=== PATIENT | male | born 1965 | race Two or more races ===

== ENCOUNTER 2021-12-10 22:50 | Emergency (ER) | payer OTHER ==
[~2021-12-10] VITALS: Ht 175.3 cm; Wt 93.0 kg
--- NOTE | 2021-12-10 23:21 | NUR ---
BIBSELF C/O LOWER ABD PAIN RAD TO BACK FOR THE PAST 5 DAYS, +N/V. PT IS A/O X 4, RR EVEN AND UNLABORED, NO SOB NOTED. PATIENT IS AFEBRILE. TAKEN TO ER BED 10. PATIENT CONNECTED TO MONITORS.
[2021-12-10] MEDS ORDERED: IV NS 0.9% 500 ML BAG IV ONE (23:30)
[2021-12-10] MEDS ORDERED: MORPHINE SULFATE INJ 2 MG/ML DISP.SYRIN IV ONE (23:30)
[2021-12-10] MEDS ORDERED: ONDANSETRON HCL/PF 4 MG/2 ML VIAL IVP ONE (23:30)
[2021-12-10] MEDS ORDERED: MORPHINE SULFATE INJ 4 MG/ML DISP.SYRIN ONE (23:34)
[2021-12-10] MEDS ORDERED: ONDANSETRON HCL/PF 4 MG/2 ML VIAL ONE (23:34)
--- NOTE | 2021-12-10 23:40 | NUR ---
URINE COLLECTED AND SENT TO LAB
--- NOTE | 2021-12-10 23:44 | NUR ---
20G IV LINE ESTABLISHED AT [facility]. BLOOD DRAWN AND SENT TO LAB.
[2021-12-10 23:50] LABS: BASOPHILS # (AUTO) 0.1 K/uL (0.0-0.2); BASOPHILS % (AUTO) 0.9 % (0.0-2.0); EOSINOPHILS % (AUTO) 0.8 % (0.0-6.0); HEMATOCRIT 41 % (39-51); HEMOGLOBIN 13.3 g/dL (13.5-17.5); LYMPHOCYTES # (AUTO) 1.1 K/uL (0.8-4.8); LYMPHOCYTES % (AUTO) 15.8 % (20.0-44.0); MEAN CORPUSCULAR HGB CONC 33 g/dl (31.0-36.0); MEAN CORPUSCULAR VOLUME 88 fL (80-96); MONOCYTES # (AUTO) 0.5 K/uL (0.1-1.30); MONOCYTES % (AUTO) 7.2 % (2.0-12.0); NEUTROPHILS # (AUTO) 5.4 K/uL (1.8-8.9); NEUTROPHILS % (AUTO) 75.3 % (43.0-81.0); PLATELET COUNT (AUTO) 296 K/uL (150-450); RED BLOOD CELL COUNT(AUTO) 4.63 MIL/uL (4.5-6.0); WHITE BLOOD COUNT (AUTO) 7.1 K/uL (4.3-11.0)
[2021-12-10 23:59] LABS: CALCIUM, SERUM 8.8 mg/dL (8.5-10.1); CREATININE 0.8 mg/dL (0.6-1.3); POTASSIUM 4.1 mmol/L (3.5-5.1)
[2021-12-11 00:04] LABS: BILIRUBIN,URINE NEGATIVE (NEGATIVE); COLOR,URINE DARK YELLOW (YELLOW); LEUKOCYTE ESTERASE ,URINE NEGATIVE (NEGATIVE); NITRITE, URINE NEGATIVE (NEGATIVE); PROTEIN,URINE NEGATIVE (NEGATIVE); UGLUCOSE NEGATIVE (NEGATIVE); UROBILINOGEN,URINE 0.2 EU/dL (0.2)
[2021-12-11 00:05] LABS: ALBUMIN 3.4 g/dL (3.4-5.0); BILIRUBIN,DIRECT 0.1 mg/dL (0.0-0.2); BILIRUBIN,TOTAL 0.4 mg/dL (0.2-1.0)
[2021-12-11] MEDS ORDERED: KETOROLAC TROMETHAMINE INJ 30 MG/ML VIAL ONE (01:21)
[2021-12-11] MEDS ORDERED: KETOROLAC TROMETHAMINE INJ 30 MG/ML VIAL IV ONE (01:30)
[2021-12-11] MEDS ORDERED: ONDA4TAB5 PO (02:13)
--- NOTE | 2021-12-11 02:22 | NUR ---
Patient discharged to home in stable condition. Written and verbal after care instructions given. Patient verbalizes understanding of instruction.
[2021-12-11 02:40] VITALS: BP 132/83
== END 2021-12-11 02:57 | disposition home or self-care (01) ==
LOC: ER 22:52
DX: N20.0 Calculus of kidney (principal); I10 Essential (primary) hypertension; Z88.8 Allergy status to other drugs, medicaments and biological substances; Z88.6 Allergy status to analgesic agent; Z60.2 Problems related to living alone
CPT/HCPCS: 36415; 74176; 80048; 80076; 81003; 83690; 85025; 96374; 96375; 99284; J1885; J2270; J2405; J7030

== ENCOUNTER 2021-12-29 19:24 | Emergency (ER) | payer OTHER ==
[~2021-12-29 19:24] MED LIST: ONDA4TAB5 PO
== END 2021-12-29 21:43 | disposition left against medical advice (07) ==
LOC: ER 19:28
DX: M25.521 Pain in right elbow (principal); I10 Essential (primary) hypertension; Z88.8 Allergy status to other drugs, medicaments and biological substances; Z60.2 Problems related to living alone; Z79.899 Other long term (current) drug therapy

== ENCOUNTER 2022-02-03 19:42 | Emergency (ER) | payer OTHER ==
[~2022-02-03] VITALS: Ht 175.3 cm; Wt 100.2 kg
--- NOTE | 2022-02-03 20:58 | NUR ---
BIBS. BILAT TESTICLE PAIN & SWELLING X 2 DAYS. PATIENT ALERT AND ORIENTED X3. AMBULATORY WITH NON LABORED BREATHING IN BED 11 AWAITING MD TRINIDAD.
[2022-02-03] MEDS ORDERED: ONDANSETRON HCL/PF - ER 4 MG/2 ML VIAL IV ONE (21:30)
[2022-02-03] MEDS ORDERED: MORPHINE SULFATE INJ 2 MG/ML DISP.SYRIN IV ONE (21:30)
[2022-02-03] MEDS ORDERED: ONDANSETRON HCL/PF 4 MG/2 ML VIAL ONE (21:33)
[2022-02-03] MEDS ORDERED: MORPHINE SULFATE INJ 4 MG/ML DISP.SYRIN ONE (21:33)
--- NOTE | 2022-02-03 21:51 | NUR ---
US AT BEDSIDE
[2022-02-03 22:17] LABS: BASOPHILS % (AUTO) 0.3 % (0.0-2.0); EOSINOPHILS % (AUTO) 0.8 % (0.0-6.0); HEMATOCRIT 40 % (39-51); LYMPHOCYTES # (AUTO) 1.4 K/uL (0.8-4.8); LYMPHOCYTES % (AUTO) 16.8 % (20.0-44.0); MEAN CORPUSCULAR HGB CONC 33 g/dl (31.0-36.0); MEAN CORPUSCULAR VOLUME 87 fL (80-96); MONOCYTES # (AUTO) 0.5 K/uL (0.1-1.30); MONOCYTES % (AUTO) 6.5 % (2.0-12.0); NEUTROPHILS # (AUTO) 6.2 K/uL (1.8-8.9); NEUTROPHILS % (AUTO) 75.6 % (43.0-81.0); PLATELET COUNT (AUTO) 267 K/uL (150-450); RED BLOOD CELL COUNT(AUTO) 4.56 MIL/uL (4.5-6.0); WHITE BLOOD COUNT (AUTO) 8.2 K/uL (4.3-11.0)
[2022-02-03] MEDS ORDERED: PIPERACILLIN /TAZOBACTAM 3.375 G VIAL IV ONE (22:26)
[2022-02-03] MEDS ORDERED: PIPERACILLIN /TAZOBACTAM 3.375 G in IV D5W 50 ML IV ONE (22:30)
[2022-02-03 22:34] LABS: CALCIUM, SERUM 8.3 mg/dL (8.5-10.1); CREATININE 0.9 mg/dL (0.6-1.3); POTASSIUM 4.1 mmol/L (3.5-5.1)
[2022-02-03 22:41] LABS: ALBUMIN 3.5 g/dL (3.4-5.0); BILIRUBIN,DIRECT 0.1 mg/dL (0.0-0.2); BILIRUBIN,TOTAL 0.4 mg/dL (0.2-1.0); TOTAL PROTEIN, SERUM 7.1 g/dL (6.4-8.2)
[2022-02-03] MEDS ORDERED: LEVO500T90 PO (22:45)
[2022-02-03 22:50] VITALS: BP 145/80
--- NOTE | 2022-02-03 22:50 | NUR ---
Patient does not wish to proceed with medical care recommended by Dr. Ordonez. Patient given information related to possible complications, up to and including , which could occur as a result of leaving the hospital at this time. Patient verbalizes understanding of risks involved due to leaving against medical advice. Patient has signed AMA form.
[2022-02-03 22:56] LABS: BILIRUBIN,URINE NEGATIVE (NEGATIVE); COLOR,URINE YELLOW (YELLOW); LEUKOCYTE ESTERASE ,URINE SMALL (NEGATIVE); NITRITE, URINE NEGATIVE (NEGATIVE); PH,URINE 6.5 (5.0-8.0); PROTEIN,URINE NEGATIVE (NEGATIVE); UGLUCOSE NEGATIVE (NEGATIVE)
[2022-02-04 02:17] LABS: BACTERIA,URINE Rare /HPF (None Seen); HYALINE CASTS, URINE Rare /LPF (None Seen); RBC,URINE 0-2 /HPF (0-2); SQUAMOUS EPITHELIAL CELL,UR Few /HPF (None Seen); WBC,URINE 0-2 /HPF (0-3)
== END 2022-02-03 22:50 | disposition left against medical advice (07) ==
LOC: ER 20:25
DX: N45.1 Epididymitis (principal); N43.3 Hydrocele, unspecified; Z76.5 Malingerer [conscious simulation]; I10 Essential (primary) hypertension; Z88.8 Allergy status to other drugs, medicaments and biological substances; Z88.6 Allergy status to analgesic agent; Z60.2 Problems related to living alone; Z79.899 Other long term (current) drug therapy
CPT/HCPCS: 99284; 96365; 96375; 76870; 85025; 80048; 87086; 80076; 81001; 36415; 87491; 87591; J2270; J2405 ×2; J2543 ×2; J7060

== ENCOUNTER 2022-04-23 00:51 | Emergency (ER) | payer OTHER ==
[~2022-04-23] VITALS: Ht 175.3 cm; Wt 99.8 kg
[~2022-04-23 00:51] MED LIST changes: +LEVO500T90 PO
--- NOTE | 2022-04-23 01:25 | NUR ---
[id number]. LUQ ABD PAIN, MID BACK PAIN AND VOMITING. PATIENT IS AAOX4. ABLE TO MAKE NEEDS KNOWN. PAINSCALE OF 04/12. MD AWARE. PLACED COMFORTABLY IN BED. VITALS CHECKED. ATTACHED TO MONITOR.
[2022-04-23] MEDS ORDERED: HYDROMORPHONE INJ 2 MG/ML DISP.SYRIN IV ONE (02:00)
[2022-04-23] MEDS ORDERED: ONDANSETRON HCL/PF 4 MG/2 ML VIAL IVP ONE (02:00)
[2022-04-23] MEDS ORDERED: CT SWABBABLE VALVE TRANS SET 1 EA INFUS.SET MC ONE ×2 (02:06→03:29)
[2022-04-23] MEDS ORDERED: IOHEXOL-300 100 ML VIAL IV ONE ×2 (02:06→03:28)
[2022-04-23] MEDS ORDERED: IV NS 0.9% 250 ML IV ONE ×2 (02:06→03:28)
--- NOTE | 2022-04-23 02:20 | NUR ---
IV CANNULA G20 INSERTED ON RIGHT FA. BLOOD DRAWN AND SENT TO LAB
[2022-04-23] MEDS ORDERED: ONDANSETRON HCL/PF 4 MG/2 ML VIAL ONE (02:21)
[2022-04-23] MEDS ORDERED: HYDROMORPHONE 1 MG/1 ML DISP.SYRIN ONE ×2 (02:22→03:55)
--- NOTE | 2022-04-23 02:32 | NUR ---
COVID SWAB DONE AND SENT TO LAB
[2022-04-23 03:01] LABS: BASOPHILS % (AUTO) 0.5 % (0.0-2.0); EOSINOPHILS % (AUTO) 0.5 % (0.0-6.0); HEMATOCRIT 39 % (39-51); HEMOGLOBIN 12.8 g/dL (13.5-17.5); LYMPHOCYTES # (AUTO) 1.1 K/uL (0.8-4.8); LYMPHOCYTES % (AUTO) 15.8 % (20.0-44.0); MEAN CORPUSCULAR HGB CONC 33 g/dl (31.0-36.0); MEAN CORPUSCULAR VOLUME 86 fL (80-96); MONOCYTES # (AUTO) 0.6 K/uL (0.1-1.30); MONOCYTES % (AUTO) 8.5 % (2.0-12.0); NEUTROPHILS % (AUTO) 74.7 % (43.0-81.0); PLATELET COUNT (AUTO) 280 K/uL (150-450); RED BLOOD CELL COUNT(AUTO) 4.53 MIL/uL (4.5-6.0); WHITE BLOOD COUNT (AUTO) 6.7 K/uL (4.3-11.0)
[2022-04-23 03:18] LABS: CALCIUM, SERUM 8.7 mg/dL (8.5-10.1); CREATININE 0.8 mg/dL (0.6-1.3); POTASSIUM 4.1 mmol/L (3.5-5.1)
[2022-04-23 03:19] LABS: ALBUMIN 3.5 g/dL (3.4-5.0); BILIRUBIN,DIRECT 0.1 mg/dL (0.0-0.2); BILIRUBIN,TOTAL 0.4 mg/dL (0.2-1.0); TOTAL PROTEIN, SERUM 6.9 g/dL (6.4-8.2)
[2022-04-23 03:32] LABS: BILIRUBIN,URINE NEGATIVE (NEGATIVE); COLOR,URINE YELLOW (YELLOW); LEUKOCYTE ESTERASE ,URINE NEGATIVE (NEGATIVE); NITRITE, URINE NEGATIVE (NEGATIVE); PROTEIN,URINE NEGATIVE (NEGATIVE); UGLUCOSE NEGATIVE (NEGATIVE); UROBILINOGEN,URINE 0.2 EU/dL (0.2)
[2022-04-23 03:41] LABS: BACTERIA,URINE Few /HPF (None Seen); RBC,URINE 0-2 /HPF (0-2); SQUAMOUS EPITHELIAL CELL,UR Moderate /HPF (None Seen)
[2022-04-23] MEDS ORDERED: HYDROMORPHONE 1 MG/1 ML DISP.SYRIN IV ONE (04:00)
--- NOTE | 2022-04-23 04:10 | NUR ---
PT COMPLAINT OF PAIN. IT WAS NOT RELIEVED BY DILAUDID GIVEN EARLIER. PAIN SCALE 10/10 IN THE UPPER ABDOMEN. VITALS CHECKED. HR 88BPM, SATS 91, BP 126/71mmHg
[2022-04-23] MEDS ORDERED: HYDR-3980 PO (05:41)
--- NOTE | 2022-04-23 05:51 | NUR ---
IV CANNULA REMOVED
--- NOTE | 2022-04-23 05:51 | NUR ---
Patient discharged to home in stable condition. Written and verbal after care instructions given. Patient verbalizes understanding of instruction.
[2022-04-23 05:52] VITALS: BP 137/84
== END 2022-04-23 05:54 | disposition home or self-care (01) ==
LOC: ER 00:52
DX: R10.12 Left upper quadrant pain (principal); I10 Essential (primary) hypertension; F17.210 Nicotine dependence, cigarettes, uncomplicated; Z88.6 Allergy status to analgesic agent; Z88.8 Allergy status to other drugs, medicaments and biological substances; Z20.822 Contact with and (suspected) exposure to COVID-19
CPT/HCPCS: 99285; 74177; 96374; 96375; 87426; 99406; 96376; 85025; 80048; 83690; 80076; 81001; 36415; 85730; J2405; J7050 ×2; Q9967 ×2; J1170 ×2; C9803

== ENCOUNTER 2022-09-19 10:02 | Emergency (ER) | payer OTHER ==
[~2022-09-19] VITALS: Ht 175.3 cm; Wt 99.8 kg
[~2022-09-19 10:02] MED LIST changes: +HYDR-3980 PO
--- NOTE | 2022-09-19 10:23 | NUR ---
C/O RIGHT TESTICLE PAIN X 2 DAYS. DENIES TRAUMA. DENIES DYSURIA AND HEMATURIA. BREATHING EVEN AND UNLABORED. AMBULATED TO BED WITH STEADY GAIT. AAOX4. CONNECTED TO MONITOR. VITAL SIGNS STABLE. SAFETY PRECAUTIONS IN PLACE. AWAITING MD ORDERS.
[2022-09-19] MEDS ORDERED: ACETAMINOPHEN ES 500 MG TABLET PO ONE (10:30)
--- NOTE | 2022-09-19 10:30 | NUR ---
DR. BENTLEY AT BEDSIDE FOR EVAL
--- NOTE | 2022-09-19 10:30 | NUR ---
PT AMBULATED TO RESTROOM TO GIVE URINE SAMPLE. STEADY GAIT.
--- NOTE | 2022-09-19 10:33 | NUR ---
URINE SAMPLE COLLECTED AND SENT TO LAB
[2022-09-19] MEDS ORDERED: ACETAMINOPHEN ES 500 MG TABLET ONE (10:35)
[2022-09-19 10:45] LABS: BILIRUBIN,URINE NEGATIVE (NEGATIVE); COLOR,URINE DARK YELLOW (YELLOW); LEUKOCYTE ESTERASE ,URINE NEGATIVE (NEGATIVE); NITRITE, URINE NEGATIVE (NEGATIVE); PH,URINE 7.5 (5.0-8.0); PROTEIN,URINE NEGATIVE (NEGATIVE); UGLUCOSE NEGATIVE (NEGATIVE)
[2022-09-19 10:47] LABS: BACTERIA,URINE Rare /HPF (None Seen); RBC,URINE 0-2 /HPF (0-2); SQUAMOUS EPITHELIAL CELL,UR Few /HPF (None Seen); WBC,URINE 0-2 /HPF (0-3)
[2022-09-19] MEDS ORDERED: TRAMADOL HCL 50 MG TABLET ONE ×2 (11:20→12:18)
--- NOTE | 2022-09-19 11:24 | NUR ---
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
[2022-09-19] MEDS ORDERED: TRAMADOL HCL 50 MG TABLET PO ONE ×2 (11:30→12:30)
[2022-09-19] MEDS ORDERED: NYST15CR TP (13:08)
[2022-09-19] MEDS ORDERED: TRAM50TA2 PO (13:09)
[2022-09-19] MEDS ORDERED: METR500T PO (13:12)
[2022-09-19] MEDS ORDERED: CIPR500T5 PO (13:12)
[2022-09-19 13:24] VITALS: BP 122/88
--- NOTE | 2022-09-19 13:24 | NUR ---
Patient discharged to home in stable condition. Written and verbal after care instructions given. Patient verbalizes understanding of instruction.
== END 2022-09-19 13:24 | disposition home or self-care (01) ==
LOC: ER 10:05
DX: N45.1 Epididymitis (principal); N43.3 Hydrocele, unspecified; Z76.5 Malingerer [conscious simulation]; I10 Essential (primary) hypertension; F17.200 Nicotine dependence, unspecified, uncomplicated; Z88.8 Allergy status to other drugs, medicaments and biological substances; Z60.2 Problems related to living alone; Z79.899 Other long term (current) drug therapy
CPT/HCPCS: 76870-TC; 81001